=== PATIENT | female | born 1990 | race Caucasian/White ===

== ENCOUNTER → 2019-07-13 | Outpatient (CLI) | payer BC, OTHER ==
--- NOTE | 2019-07-15 15:03 | 24HR ---
[facility] [employer] [place] [address] 24 HR ELECTROCARDIOGRAM REPORT Name: ELISABETH FERRELL Room #: REG CL [facility]#: [id number] Admission: 07/13/19 Attend Phys: Brien Philip MD Discharge: Date of : 89 Date of Service: 07/13/19 1455 Report #: [id number] THIS REPORT FOR: //name// [facility] Test Date: 2019-07-13 Test Time: 14:55:00 Pat Name: ELISABETH FERRELL Department: Room: Gender: Rater Associate: : 1990 Requested By: Brien Philip Order Number: [id number] Herbert MD: Dylan Albrecht Interpretive Statements The patient was monitored for total 23 hours 59 minutes. Total number of beats of horizontal 4161 with a maximum rate of 167 bpm in a sinus tachycardia which is asymptomatic and the lowest 57 bpm which was asymptomatic. The average rate was 87 bpm. Ventricular and supraventricular ectopics are less than 1% of total beats recorded. No diary entries noted 1. Underlying rhythm: Sinus mechanism 2. No significant ventricular or ventricular tachyarrhythmia 3. No significant bradycardia arrhythmias conduction blocks or rhythm changes 4. No diary entries Electronically Signed On 07-15-2019 15:03:00 CDT by Dylan Albrecht [email or web address] <ELECTRONICALLY SIGNED> By: Dylan Albrecht MD 07/15/19 1503 1455 1455 Dylan Albrecht MD /EPI
== END ==
LOC: CV 10:21
DX: R55 Syncope and collapse (principal); R00.2 Palpitations